=== PATIENT | male | born 1980 | race African-American/Black ===

== ENCOUNTER 2017-03-26 23:00 | Inpatient (IN) | payer OTHER ==
[~2017-03-26] VITALS: Ht 182.9 cm; Wt 86.2 kg
--- NOTE | ~2017-03-26 | HP ---
Unit #: [id number] #: [id number] Patient: JOSIE WONG [id number] [place] [address] [id number] MR#: [id number] NAME: JOSIE WONG ROOM: P211 Age: 36 Sex: M Admission Date: 03/27/2017 : 1980 Attending Physician: Grant Buckley M.D. Admitting Physician: Grant Buckley M.D. Primary Care Physician: Primary Care Physician No HISTORY AND PHYSICAL HISTORY OF PRESENT ILLNESS Josie is a 36-year-old male admitted on 03/27/[address] [place] [address] for detox from heroin. PAST MEDICAL HISTORY None. PAST SURGICAL HISTORY I and D of his left elbow. ALLERGIES None. SOCIAL HISTORY Smokes 1 pack of cigarettes daily. No alcohol use. Does report heroin use. He is currently single and living with his mother. FAMILY HISTORY Noncontributory. REVIEW OF SYSTEMS CONSTITUTIONAL: No fever or chills. HEENT: Denies any sore throat, ear pain or runny nose. CARDIOVASCULAR: Denies chest pain, irregular heart rhythm or palpitations. CHEST: Denies shortness of breath or cough. No hemoptysis. GASTROINTESTINAL: Denies nausea, vomiting, diarrhea or chronic constipation. ENDOCRINE: Denies history of increased thirst or urination. No recent significant weight loss or gain. GENITOURINARY: Denies dysuria, frequency, or hematuria. SKIN: Denies any rashes. HEMATOLOGIC: Denies history of increased bleeding or bruising. MUSCULOSKELETAL: Denies any hot, swollen joints. No generalized muscle pain. NEUROLOGIC: Denies problems with vision or speech. No frequent, severe headaches. No numbness, tingling or weakness in any extremities. Denies loss of bladder or bowel control. CURRENT MEDICATIONS None. PHYSICAL EXAMINATION GENERAL: Alert, oriented, in no acute distress. Unit #: [id number] #: [id number] Patient: JOSIE WONG VITAL SIGNS: Blood pressure 151/101, heart rate 78, temperature 99.1. HEIGHT: 6 feet 4. WEIGHT: 190 pounds. SKIN: Warm and dry without rash or lesion. HEENT: Normocephalic. TMs not viewed. Oral and nasal passages clear. Conjunctivae clear. PERRLA. EOMs intact. NECK: Supple without lymphadenopathy or thyromegaly. HEART: Regular rate and rhythm without murmur. LUNGS: Clear. ABDOMEN: Soft, nontender, without masses or hepatosplenomegaly. : Not done. EXTREMITIES: No evidence of cyanosis, clubbing or edema. Moves all without focal deficit. NEUROLOGICAL: Grossly within normal limits. Cranial Nerves: II: Visual murillo are intact. III, IV AND : Extraocular movements are intact. Pupils are equal, round and reactive to light. V: Facial sensation is grossly normal. VII: Facial movements and expression are normal. VIII: Auditory acuity grossly intact. IX, X: Uvula is midline. Phonation is normal. XI: Patient shrugs shoulders and turns head normally. XII: Tongue protrudes in the midline. Sensory and Motor Function: Sensory and motor sensation is grossly normal. Motor: moves all extremities well. Coordination: Gait is normal. Deep Tendon Reflexes: Intact. IMPRESSION Psychiatric admission. RECOMMENDATIONS PSYCHIATRIC: Per psychiatrist. MEDICAL: No contraindication to participate in facility's activities. MEDICAL PROGNOSIS Good. MEDICAL CONDITION Stable. Dictated by... Naman Cisneros/marc TD: 03/27/2017 21:06 JOB #: [id number] Unit #: [id number] #: [id number] Patient: JOSIE WONG HISTORY AND PHYSICAL Page 1 of 1 X SOHAIL SOLORZANO APRN HISTORY AND PHYSICAL
--- NOTE | ~2017-03-26 | DS ---
Unit #: [id number] #: [id number] Patient: JOSIE MCCURDY [id number] [facility] [address] [place] [address] [id number] MR#: [id number] NAME: JOSIE MCCURDY ROOM: [facility] Age: 36 Sex: M Admission Date: 03/27/2017 : 1980 Discharge Date: 03/30/2017 Attending Physician: Grant Buckley M.D. Primary Care Physician: Primary Care Physician No DISCHARGE SUMMARY IDENTIFYING DATA Mr. Mccurdy is a 36-year-old, single, male who is a resident of [place], [place], and was self-referred to the hospital on a voluntary basis. DISCHARGE DIAGNOSES Psychiatric: Opioid dependence, moderate and acute withdrawals; opioid-induced mood disorder. Medical: None. Stressors: Moderate psychosocial stressors. HISTORY OF PRESENT ILLNESS Please see initial psychiatric evaluation for details. PAST PSYCHIATRIC HISTORY Please see initial psychiatric evaluation for details. PAST MEDICAL HISTORY Please see initial psychiatric evaluation for details. HOSPITAL COURSE The patient was admitted to the [facility] and was oriented to the hospital environment. Routine p.r.n. medications were initiated, and he was started on the opioid detox protocol and was closely monitored. He was taking the medications regularly and was tolerating them fairly well and was able to show a decent therapeutic response and was willing to continue treatment on an outpatient basis and as such, it was decided that he will be discharged home and will continue treatment on an outpatient basis. DISCHARGE MEDICATIONS None. DISCHARGE CONDITION Stable. PROGNOSIS Fair. Dictated by... Grant Buckley M.D. IAA/modl Unit #: [id number] #: [id number] Patient: JOSIE MCCURDY TD: 03/30/2017 15:27 JOB #: [id number] DISCHARGE SUMMARY Page 1 of 1 X Grant Buckley MD X DISCHARGE SUMMARY
--- NOTE | ~2017-03-26 | PN ---
Unit #: [id number] #: [id number] Patient: JOSIE WONG [id number] [facility] [address] [place] [address] [id number] MR#: [id number] NAME: JOSIE WONG ROOM: P211 Age: 36 Sex: M Admission Date: 03/27/2017 : 1980 Attending Physician: Grant Buckley M.D. Admitting Physician: Grant Buckley M.D. Primary Care Physician: Primary Care Physician Oumou RENE NOTES DATE OF SERVICE 03/29/2017 DISCUSSION Mr. Wong is a 36-year-old male who was seen today. Chart was reviewed and case was discussed with the staff. He has been anxious, withdrawn, and rather seclusive to himself. Meanwhile, he has been polite and pleasant, cooperative with the treatment recommendations and has been taking the medications and was tolerating them fairly well with no reported side effects. MENTAL STATUS EXAMINATION Young male who is casually dressed with fair personal hygiene, appears to be in no acute distress or discomfort. He was awake and alert on interaction with intact orientation. His mood is anxious with congruent affect. He denies any suicidal or homicidal ideations and also denies any auditory or visual hallucinations. His insight and judgment remain slightly impaired. TREATMENT PLAN 1. We will continue him on his current medications and treatment protocol. We will monitor his response to the medications and make further adjustments as needed. 2. We will continue to follow up. Dictated by... Qian Lutz/fransico TD: 03/30/2017 08:06 JOB #: [id number] Unit #: [id number] #: [id number] Patient: JOSIE WONG PROGRESS NOTES Page 1 of 1 X Grant Buckley MD PROGRESS NOTE
--- NOTE | ~2017-03-26 | PN ---
Unit #: [id number] #: [id number] Patient: JOSIE MCCURDY [id number] [facility] [address] [place] [address] [id number] I MR#: [id number] NAME: JOSIE MCCURDY ROOM: P211 Age: 36 Sex: M Admission Date: 03/27/2017 : 1980 Attending Physician: Grant Buckley M.D. Admitting Physician: Grant Buckley M.D. Primary Care Physician: Primary Care Physician Oumou CHAPMAN PROGRESS NOTES DATE OF SERVICE 03/28/2017 DISCUSSION Mr. Mccurdy is a 36-year-old male who was seen today. Chart was reviewed and case was discussed with the staff. He has been anxious, withdrawn, and rather seclusive to himself. Meanwhile, he has been taking the medications and tolerating them fairly well with no reported side effects. MENTAL STATUS EXAMINATION Young male who is casually dressed with fair personal hygiene, appears to be in no acute distress or discomfort. The patient was awake and alert with impaired attention and concentration. His mood is anxious with congruent affect. He denies any suicidal or homicidal ideations. His insight and judgment remain slightly impaired. TREATMENT PLAN 1. We will continue him on his current treatment protocol. We will monitor his response to the medications and make further adjustments as needed. 2. We will continue to follow up. Dictated by... Grant Buckley M.D. IAA/christeng TD: 03/29/2017 08:58 JOB #: [id number] [facility] PROGRESS NOTES Page 1 of 1 X Grant Buckley MD PROGRESS NOTE
--- NOTE | ~2017-03-26 | PA ---
Unit #: [id number] #: [id number] Patient: JOSIE WONG [id number] [facility] [address] [place] [address] [id number] MR#: [id number] NAME: JOSIE WONG ROOM: P211 Age: 36 Sex: M Admission Date: 03/27/2017 : 1980 Date of Assessment: Attending Physician: Grant Buckley M.D. Admitting Physician: Grant Buckley M.D. Primary Care Physician: Primary Care Physician No PSYCHIATRIC ASSESSMENT IDENTIFYING DATA Mr. Wong is a 36-year-old, single, male, who is a resident of [place], [place], and was self-referred to the hospital on a voluntary basis. CHIEF COMPLAINT "Withdrawal from heroin." HISTORY OF PRESENT ILLNESS Mr. Wong is a 36-year-old male with a history of opioid dependence, who brought himself to the hospital. Upon initial presentation, he had a COWS of 15 indicating significant withdrawal from opioids and reports that he has been using heroin, has been having significant withdrawal symptoms. His last use of heroin was approximately midnight on the night before coming to the hospital and that he has been using 0.5 g of heroin on a daily basis. He does report increasing depression, anxiety, irritability, restlessness, feelings of hopelessness and helplessness, and significant consequences because of his addiction. However, he denies any suicidal ideations, intent, or plan. SUBSTANCE ABUSE HISTORY The patient reports extensive history of substance abuse and dependence including experimentation with alcohol, cannabis, cocaine, opioids, methamphetamine, and currently, opioids has been his drug of choice and reports that he has been using 0.5 g IV heroin on a daily basis. PAST PSYCHIATRIC HISTORY The patient has a history of inpatient chemical dependency treatment twice at [facility] and review of the medical records indicate that currently he is not active in any treatment program, is not seeing a psychiatrist, and is not taking any psychotropic medications. PAST MEDICAL HISTORY The patient's medical history is insignificant. ALLERGIES No known medication allergies. PERSONAL AND SOCIAL HISTORY A 36-year-old male, who reports that he is single, unemployed, and lives at home with his mother and has fairly decent social support system. Unit #: [id number] #: [id number] Patient: JOSIE WONG MENTAL STATUS EXAMINATION Young male, who was casually dressed with fair personal hygiene, appears to be in no acute distress or discomfort. He was awake and alert on interaction with intact orientation to time, place, and person. His mood was anxious and depressed with a congruent affect. His speech was slow and restricted in content. His thought processes were disorganized with some looseness of associations. His insight and judgment remain significantly impaired. DIAGNOSTIC IMPRESSION Psychiatric: Opioid dependence, moderate and acute withdrawals; opioid-induced mood disorder. Medical: None. Stressors: Moderate psychosocial stressors. TREATMENT PLAN 1. The patient has presented with a history of substance abuse and mood disorder, and has been decompensating and will need inpatient hospitalization for detoxification, safety, and stabilization. We will start him back on his home medications and detox protocol for opioids will be initiated as well. 2. Supportive therapy was provided to the patient. 3. Safe, structured, and nourishing environment will be reported. ESTIMATED LENGTH OF STAY 5 to 7 days. ABILITY TO HELP SELF Limited. WILLINGNESS TO HELP SELF The patient appears to be willing to help self. STRENGTHS 1. Communicative. 2. Cooperative. PROBLEMS 1. Chronic dysphoric symptoms. 2. Chronic chemical dependency. 3. Poor social support system. DISCHARGE CRITERIA This will be contingent upon the patient's ability to show resolution of his depression and anxiety and his ability to stay safe to himself, particularly after discharge from the hospital. Dictated by... Qian Lutz/mayi TD: 03/27/2017 07:18 JOB #: [id number] Unit #: [id number] #: [id number] Patient: JOSIE WONG PSYCHIATRIC ASSESSMENT Page 1 of 1 X Grant Buckley MD X PSYCHIATRIC ASSESSMENT
[2017-03-27 11:25] LABS: URINE APPEARANCE CLEAR; URINE BILIRUBIN NEG (NEG); URINE BLOOD NEG (NEG); URINE COLOR YELLOW; URINE GLUCOSE NEG (NEG); URINE KETONE NEG (NEG); URINE LEUKOCYTE ESTERASE NEG (NEG); URINE NITRATE NEG (NEG); URINE PROTEIN NEG (NEG); URINE SPECIFIC GRAVITY 1.018 (1.003-1.035)
[2017-03-27 11:32] LABS: AMPHETAMINE POS (NEG); BARBITURATES NEG (NEG); BENZODIAZEPINES NEG (NEG); COCAINE NEG (NEG); MARIJUANA POS (NEG); OPIATES POS (NEG); TRICYCLIC ANTIDEPRESSANTS NEG (NEG); U METHADONE NEG (NEG)
[2017-03-28 09:44] LABS: BASOPHIL% 0.2 % (0-2.5); EOSINOPHIL% 0.4 % (0.0-7.0); HEMOGLOBIN 11.5 gm/dL (13.0-16.0); LYMPHOCYTE# 1.5 X10e3 (1.0-3.5); LYMPHOCYTE% 29.7 % (17.0-45.0); MEAN CELL VOLUME 84.5 FL (83-96); MEAN CORPUSCULAR HEMOGLOBIN 26.9 PG (28-34); MEAN CORPUSCULAR HGB CONC 31.9 g/dL (30-36); MEAN PLATELET VOLUME 9.4 FL (6.5-11.5); MONOCYTE# 0.6 X10e3 (0-1.0); MONOCYTE% 11.1 % (3.0-12.0); NEUTROPHIL# 3.1 X10e3 (1.5-7.1); NEUTROPHIL% 58.6 % (40-75); PLATELET COUNT 291 X10e3 (140-420); RED BLOOD COUNT 4.26 X10e (3.90-5.60); RED CELL DISTRIBUTION WIDTH 15.1 % (11.0-15.5); WHITE BLOOD COUNT 5.2 X10e3 (4.0-10.5)
[2017-03-28 09:55] LABS: DIFF IND NO
[2017-03-28 10:00] LABS: ALBUMIN SERUM 3.2 g/dL (3.5-5.0); BILIRUBIN,TOTAL 0.7 mg/dL (0.2-2.0); BUN/CREATININE RATIO 8.88; CALCIUM SERUM 9.3 mg/dL (8.4-10.2); CREATININE SERUM 0.9 mg/dL (0.6-1.4); GLOM FILT RATE Estimated 128.7 mL/min (>60); POTASSIUM 3.7 mmol/L (3.5-5.1); PROTEIN TOTAL SERUM 7.6 g/dL (6.0-8.3)
[2017-04-02 15:12] LABS: HA AB IGM (HEPPAN) Nonreactive (()); HB CORE AB IGM (HEPPAN) Nonreactive (Nonreactive); HB S AG (HEPPAN) Nonreactive (Nonreactive); HEP C AB (HEPPAN) Reactive (Nonreactive)
== END 2017-03-30 13:15 | disposition home or self-care (01) | DRG 897 ==
LOC: P2S 03-27 01:29
PROVIDERS: Psychiatry & Neurology Psychiatry
PROC: HZ2ZZZZ Detoxification Services for Substance Abuse Treatment (ICD-10-PCS; principal; 2017-03-27)
DX: F11.23 Opioid dependence with withdrawal (principal); F11.24 Opioid dependence with opioid-induced mood disorder; F17.210 Nicotine dependence, cigarettes, uncomplicated
CPT/HCPCS: 80053; 80074; 80307; 81003; 85025; 86592; 87522